=== PATIENT | female | born 2000 | race Two or more races ===

== ENCOUNTER 2021-03-27 17:32 | Emergency (ER) | payer MEDICAID ==
[~2021-03-27] VITALS: Ht 170.2 cm; Wt 95.0 kg
[2021-03-27 20:43] VITALS: BP 116/76
== END 2021-03-27 20:43 | disposition home or self-care (01) ==
LOC: ER 17:32
DX: S80.02XA Contusion of left knee, initial encounter (principal); S80.01XA Contusion of right knee, initial encounter; F12.10 Cannabis abuse, uncomplicated; Z88.0 Allergy status to penicillin; V18.0XXA Pedal cycle driver injured in noncollision transport accident in nontraffic accident, initial encounter; Y93.89 Activity, other specified; Y92.89 Other specified places as the place of occurrence of the external cause
CPT/HCPCS: 99281